=== PATIENT | female | born 1980 | race Caucasian/White ===

== ENCOUNTER 2024-12-04 10:58 | Emergency (ER) | payer OTHER ==
[2024-12-04 11:09] VITALS: TEMP 98.1
--- NOTE | 2024-12-04 11:34 | ED ---
General Adult HPI - General Chief complaint: Abdominal Pain Stated complaint: Rectal bleeding, abd pain Time Seen by Provider: 12/04/24 11:06 Source: patient Mode of arrival: ambulatory Limitations: no limitations - History of Present Illness Initial comments: Dictation was produced using [employer] dictation software. please excuse any grammatical, word or spelling errors. 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 Patient states she has not had a bowel movement in 3 days. States that she had bright red blood per rectum. She states that she does have some rectal pain whenever she is having a bowel movement. States that her stools have been hard. The ROS documented in this emergency department record has been reviewed and confirmed by me. Those systems with pertinent positive or negative responses have been documented in the HPI. All other systems are other negative and/or noncontributory. - Related Data Allergies Allergy/AdvReac Type Severity Reaction Status Date / Time Penicillins Allergy Anaphylaxis Verified 12/04/24 11:08 Review of Systems ROS Statement: Those systems with pertinent positive or pertinent negative responses have been documented in the HPI. ROS Other: All systems not noted in ROS Statement are negative. Past Medical History Past Medical History: CVA/TIA, Hyperlipidemia Additional Past Medical History / Comment(s): factor 5 History of Any Multi-Drug Resistant Organisms: None Reported Additional Past Surgical History / Comment(s): Thumb surgery Smoking Status: Current every day smoker Past Alcohol Use History: None Reported Past Drug Use History: None Reported General Exam - General Exam Comments Initial Comments: PHYSICAL EXAM: General Impression: Alert and oriented x3, not in acute distress HEENT: Normocephalic atraumatic, extra-ocular movements intact, pupils equal and reactive to light bilaterally, mucous membranes moist. Cardiovascular: Heart regular rate and rhythm Chest: Able to complete full sentences, no retractions, no tachypnea Abdomen: abdomen soft, non-tender, non-distended, no organomegaly Musculoskeletal: Pulses present and equal in all extremities, no peripheral edema Motor: no focal deficits noted Neurological: CN II-XII grossly intact, no focal motor or sensory deficits noted Skin: Intact with no visualized rashes Psych: Normal affect and mood Rectal exam: No bleeding, no anal fissure, no patient will hemorrhoid Limitations: no limitations Course Vital Signs 12/04/24 12/04/24 11:03 12:36 Temperature 98.1 F Pulse Rate 84 71 Respiratory 18 16 Rate Blood Pressure 157/114 128/92 O2 Sat by Pulse 97 100 Oximetry Medical Decision Making - Medical Decision Making Was pt. sent in by a medical professional or institution (, PA, CHIEF GUARD, urgent care, hospital, or detention...) When possible be specific @ -No Did you speak to anyone other than the patient for history (EMS, parent, family, police, friend...)? What history was obtained from this source @ -No Did you review nursing and triage notes (agree or disagree)? Why? @ -I reviewed and agree with nursing and triage notes Were old charts reviewed (outside hosp., previous admission, EMS record, old EKG, old radiological studies, urgent care reports/EKG's, detention records)? Report findings @ -No old charts were reviewed Differential Diagnosis (chest pain, altered mental status, abdominal pain women, abdominal pain men, vaginal bleeding, musculoskeletal, weakness, fever, dyspnea, syncope, headache, dizziness, GI bleed, back pain, seizure, CVA, palpatations, mental health)? @ -Differential GI Bleed: Esophageal varices, aortoenteric fistula, [place], gastritis, peptic ulcer disease, diverticulosis, inflammatory bowel disease, hemorrhoids, fissure, colitis, malignancy, Meckel's diverticulum, this is not meant to be an all- inclusive list. EKG interpreted by me (3pts min.). @ -See above X-rays interpreted by me (1pt min.). @ -Abdominal x-ray shows no acute processes CT interpreted by me (1pt min.). @ -None done U/S interpreted by me (1pt. min.). @ -None done What testing was considered but not performed or refused? (CT, X-rays, U/S, labs)? Why? @ -None What meds were considered but not given or refused? Why? @ -None Was smoking cessation discussed for >3mins.? @ -No Were there social determinants of health that impacted care today? How? (Homelessness, low income, unemployed, alcoholism, drug addiction, transportation, low edu. Level, literacy, decrease access to med. care, skilled nursing, rehab)? @ -No Was there de-escalation of care discussed even if they declined (Discuss DNR or withdrawal of care, Hospice)? DNR status @ -No What co-morbidities impacted this encounter? (DM, HTN, Smoking, COPD, CAD, Cancer, CVA, ARF, Chemo, Hep., AIDS, mental health diagnosis, sleep apnea, morbid obesity)? @ -None Was patient admitted / discharged? Hospital course, mention meds given and route, prescriptions, significant lab abnormalities, going to OR and other pertinent info. @ -44-year-old female prior blood per rectum. Patient well-appearing at bedside. Rectal exam is unremarkable. Vital signs stable. Labs are unremarkable. X-ray nonacute. Patient is low risk he does not take any anticoagulation medications she is discharged given referral to GI for further care. Did you discuss the management of the patient with other professionals (professionals i.e. , PA, CHIEF GUARD, lab, RT, psych nurse, social worker aide, sound printer, teacher, commanding officer motorized squad, complex case manager)? Give summary @ -No Was critical care preformed (if so, how long)? @ -No Undiagnosed new problem with uncertain prognosis? @ -No Drug Therapy requiring intensive monitoring for toxicity (Heparin, Nitro, Insulin, Cardizem)? @ -No Were any procedures done? @ -No Diagnosis/symptom? Acute, or Chronic, or Acute on Chronic? Uncomplicated (without systemic symptoms) or Complicated (systemic symptoms)? @ -Bright red blood per rectum, no high risk features Side effects of treatment? @ -No Exacerbation, Progression, or Severe Exacerbation? @ -No Poses a threat to life or bodily function? How? (Chest pain, USA, DC, pneumonia, PE, COPD, DKA, ARF, appy, cholecystitis, CVA, Diverticulitis, Homicidal, Suicidal, threat to staff... and all critical care pts) @ -No - Lab Data Result diagrams: 12/04/24 12:08 12/04/24 12:08 Lab Results 12/04/24 12/04/24 Range/Units 12:08 12:08 WBC 5.4 (3.8-10.6) k/uL RBC 5.02 (3.80-5.40) m/uL Hgb 13.8 (11.4-16.0) gm/dL Hct 44.9 (34.0-46.0) % MCV 89.3 (80.0-100.0) fL MCH 27.5 (25.0-35.0) pg MCHC 30.8 L (31.0-37.0) g/dL RDW 14.9 (11.5-15.5) % Plt Count 303 (150-450) k/uL MPV 6.9 Neutrophils % 69 % Lymphocytes % 22 % Monocytes % 5 % Eosinophils % 2 % Basophils % 1 % Neutrophils # 3.7 (1.3-7.7) k/uL Lymphocytes # 1.2 (1.0-4.8) k/uL Monocytes # 0.2 (0-1.0) k/uL Eosinophils # 0.1 (0-0.7) k/uL Basophils # 0.0 (0-0.2) k/uL Sodium 138 (137-145) mmol/L Potassium 4.0 (3.5-5.1) mmol/L Chloride 105 (98-107) mmol/L Carbon Dioxide 20 L (22-30) mmol/L Anion Gap 13 mmol/L BUN 17 (7-17) mg/dL Creatinine 0.53 (0.52-1.04) mg/dL Est GFR (CKD-EPI)AfAm >90 (>60 ml/min/1.73 sqM) Est GFR (CKD-EPI)NonAf >90 (>60 ml/min/1.73 sqM) Glucose 91 (74-99) mg/dL Calcium 9.4 (8.4-10.2) mg/dL Disposition Clinical Impression: BRBPR (bright red blood per rectum) Disposition: HOME SELF-CARE Condition: Fair Instructions (If sedation given, give patient instructions): Rectal Bleeding (ED) Is patient prescribed a controlled substance at d/c from ED?: No Referrals: Maia Hooper MD [STAFF PHYSICIAN] - 1-2 days Time of Disposition: 13:04
[2024-12-04 12:21] LABS: Basophils % (A) 1 %; Eosinophils # (A) 0.1 k/uL (0-0.7); Eosinophils % (A) 2 %; HCT 44.9 % (34.0-46.0); HGB 13.8 gm/dL (11.4-16.0); Lymphocytes # (A) 1.2 k/uL (1.0-4.8); Lymphocytes % (A) 22 %; MCH 27.5 pg (25.0-35.0); MCHC 30.8 g/dL (31.0-37.0); MCV 89.3 fL (80.0-100.0); Mean Platelet Volume 6.9; Monocytes # (A) 0.2 k/uL (0-1.0); Monocytes % (A) 5 %; Neutrophils # (A) 3.7 k/uL (1.3-7.7); Neutrophils % (A) 69 %; Platelet Count 303 k/uL (150-450); RBC 5.02 m/uL (3.80-5.40); RDW 14.9 % (11.5-15.5); WBC 5.4 k/uL (3.8-10.6)
[2024-12-04 12:29] LABS: African American GFR (CKD) >90 (>60 ml/min/1.73 sqM); Anion Gap 13 mmol/L; Blood Urea Nitrogen 17 mg/dL (7-17); Calcium 9.4 mg/dL (8.4-10.2); Carbon Dioxide 20 mmol/L (22-30); Chloride 105 mmol/L (98-107); Glucose 91 mg/dL (74-99); Non-African American GFR(CKD) >90 (>60 ml/min/1.73 sqM); Sodium 138 mmol/L (137-145)
--- NOTE | 2024-12-04 12:41 | XR ---
EXAMINATION TYPE: XR abdomen 1V DATE OF EXAM: 12/04/2024 12:18 PM COMPARISON: None CLINICAL INDICATION: Female, 44 years old with history of brbpr; [facility] TECHNIQUE: One radiographic view of the abdomen was obtained. FINDINGS: The bowel gas pattern is nonspecific without dilated loops of small or large bowel. . Fecal material and gas are demonstrated throughout the colon and rectum. There is no evidence for organome manuel or pneumoperitoneum. No acute osseous process. Severe scoliosis apex L1 1 L2. IUD present. IMPRESSION: 1. Nonspecific bowel gas pattern without radiographic evidence for acute process. 2. Severe scoliosis. 3. IUD present. [facility], , 12/04/2024 12:38 PM
[2024-12-04 12:48] VITALS: BP 128/92; PULSE 71; RESP 16
== END 2024-12-04 13:14 | disposition home or self-care (01) ==
LOC: EC 10:58
DX: K62.5 Hemorrhage of anus and rectum (principal); F17.200 Nicotine dependence, unspecified, uncomplicated
CPT/HCPCS: 36415; 74018; 80048; 85025; 99284